=== PATIENT | female | born 1975 | race African-American/Black ===

== ENCOUNTER 2020-02-08 07:10 | Outpatient (CLI) | payer OTHER, SELFPAY ==
[2020-02-08 08:28] LABS: Anion Gap 9 mmol/L (8-16); Blood Urea Nitrogen 12 mg/dL (7-17); Calcium 9.4 mg/dL (8.4-10.2); Carbon Dioxide 28 mmol/L (22-30); Chloride 103 mmol/L (98-107); Estimated Glomerular Filt Rate > 60; Glucose 235 mg/dL (65-105); Sodium 140 mmol/L (137-145)
[2020-02-08 08:59] LABS: Hemoglobin A1C 11.2 % (<5.7)
== END 2020-02-08 07:11 | disposition home or self-care (01) ==
PROVIDERS: PCP Nurse Practitioner Family; Visit Provider Nurse Practitioner Family
DX: E10.9 Type 1 diabetes mellitus without complications (principal)
CPT/HCPCS: 36415; 80048; 83036